=== PATIENT | female | born 1990 | race Two or more races ===

== ENCOUNTER → 2021-02-16 | Outpatient (CLI) | payer OTHER ==
[2021-02-17 04:06] LABS: RUBELLA AB IGG-REFLAB 1.94 index (Immune >0.99); RUBEOLA (MEASLES) IGG 60.2 AU/mL (Immune >16.4)
== END | disposition home or self-care (01) ==
LOC: LABMN 09:47
PROVIDERS: ATTEND Internal Medicine
DX: Z02.1 Encounter for pre-employment examination (principal)
CPT/HCPCS: 86706; 86735; 86762; 86765; 86787

== ENCOUNTER → 2021-05-11 | Outpatient (CLI) | payer OTHER | END | disposition home or self-care (01) | LOC: RADMN 15:51 | PROVIDERS: ATTEND Internal Medicine | DX: R76.11 Nonspecific reaction to tuberculin skin test without active tuberculosis (principal) | CPT/HCPCS: 71045 ==

== ENCOUNTER 2024-05-07 11:15 | Emergency (ER) | payer OTHER, MEDICAID ==
[~2024-05-07] VITALS: Ht 157.5 cm; Wt 68.5 kg
[2024-05-07 11:20] VITALS: TEMP 98.4
[2024-05-07] MEDS: LIDOCAINE 5% TRANSDERMAL PATCH TD ONE (14:24)
[2024-05-07] MEDS: IBUPROFEN 600 MG TABLET PO ONE (14:24)
[2024-05-07] MEDS: METHOCARBAMOL 500 MG TABLET PO ONE (14:24)
[2024-05-07 15:16] VITALS: BP 120/75; PULSE 66; RESP 18; O2SAT 99
== END 2024-05-07 15:18 | disposition home or self-care (01) ==
LOC: EMS 11:15
DX: R20.2 Paresthesia of skin (principal)
CPT/HCPCS: 72148; 99284; Z7502; Z7610

== ENCOUNTER → 2024-10-04 | Outpatient (CLI) | payer MEDICAID, OTHER ==
[2024-10-04 18:48] LABS: PLATELET COUNT (AUTO) 362 K/uL (150-450); RED BLOOD CELL COUNT(AUTO) 4.42 MIL/uL (4.00-5.20); RED CELL DISTRIBUTION WIDTH 13.3 % (11.5-14.5); WHITE BLOOD COUNT (AUTO) 6.8 K/uL (4.5-11.0)
[2024-10-04 19:16] LABS: ASPARTATE AMINOTRANSFERASE 16 U/L (15-37); CALCIUM, TOTAL 9.4 mg/dL (8.8-10.5); CREATININE 0.70 mg/dL (0.60-1.30); GLOMERULAR FILTR. RATE CALC > 60 mL/min (>60); GLUCOSE,RANDOM 105 mg/dL (70-110); SODIUM SERUM 138 mmol/L (136-145); TOTAL PROTEIN, SERUM 7.8 g/dL (6.4-8.2); UREA NITROGEN, BLOOD 14 mg/dL (7-18)
[2024-10-05 05:08] LABS: THYROID PEROXIDASE (TPO) AB <9 IU/mL (0-34)
== END | disposition home or self-care (01) ==
LOC: LABMN 18:20
PROVIDERS: ATTEND Nurse Practitioner
DX: Z13.9 Encounter for screening, unspecified (principal); Z83.3 Family history of diabetes mellitus
CPT/HCPCS: 80053; 82306; 83036; 84439; 84443; 84481; 85025; 86376; 36415-L1; 36415-TC